=== PATIENT | female | born 1955 | race Native Hawaiian/Other Pacific Islander ===

== ENCOUNTER 2018-01-05 11:22 | Emergency (ER) | payer OTHER ==
[~2018-01-05] VITALS: Ht 170.2 cm; Wt 77.1 kg
[2018-01-05 11:34] VITALS: TEMP 97.9
[2018-01-05 12:17] LABS: PLATELET COUNT 357 K/uL (152-353)
[2018-01-05 12:27] LABS: POTASSIUM 3.5 mmol/L (3.6-5.2)
[2018-01-05 17:10] VITALS: BP 180/59
== END 2018-01-05 17:10 | disposition home or self-care (01) ==
LOC: ED 11:22
DX: J06.9 Acute upper respiratory infection, unspecified (principal)
CPT/HCPCS: 36415; 80053; 81000; 85027; 87502; 87651; 96374; 99284; J3490

== ENCOUNTER 2018-06-29 16:34 | Outpatient (CLI) | payer OTHER | END 2018-06-29 16:45 | disposition short-term general hospital (02) | LOC: AMB 16:34 | DX: R10.13 Epigastric pain (principal) | CPT/HCPCS: A0425; A0427 ==

== ENCOUNTER 2018-06-29 16:51 | Emergency (ER) | payer OTHER ==
[~2018-06-29] VITALS: Ht 170.2 cm; Wt 77.1 kg
[2018-06-29 17:07] LABS: PLATELET COUNT 306 K/uL (152-353)
[2018-06-29 17:29] LABS: POTASSIUM 2.9 mmol/L (3.6-5.2); SODIUM 142 mmol/L (136-145)
[2018-06-29 19:35] VITALS: TEMP 99.5
[2018-06-29 20:05] VITALS: BP 160/62
== END 2018-06-29 20:05 | disposition home or self-care (01) ==
LOC: ED 16:51
PROVIDERS: Emergency Medicine
DX: K29.00 Acute gastritis without bleeding (principal); E87.6 Hypokalemia; R00.1 Bradycardia, unspecified
CPT/HCPCS: 74022; 80053; 82550; 82553; 83690; 84484; 85027; 96360; 96366; 96374; 99284; J2270; J2405

== ENCOUNTER 2019-02-12 19:21 | Outpatient (CLI) | payer OTHER | END 2019-02-12 19:31 | disposition short-term general hospital (02) | LOC: AMB 19:21 | DX: R53.1 Weakness (principal) | CPT/HCPCS: A0425; A0427 ==

== ENCOUNTER 2019-02-12 19:36 | Emergency (ER) | payer OTHER ==
[~2019-02-12] VITALS: Ht 170.2 cm; Wt 77.1 kg
[2019-02-12 19:36] VITALS: BP 158/74; TEMP 97.9
[2019-02-12 20:11] LABS: PLATELET COUNT 364 K/uL (152-353)
[2019-02-12 20:12] LABS: POTASSIUM 3.3 mmol/L (3.6-5.2); SODIUM 142 mmol/L (136-145)
== END 2019-02-12 21:23 | disposition left against medical advice (07) ==
LOC: ED 19:36
PROVIDERS: Family Medicine
DX: G45.8 Other transient cerebral ischemic attacks and related syndromes (principal); D64.89 Other specified anemias; I10 Essential (primary) hypertension; Z91.14 Patient's other noncompliance with medication regimen; R79.1 Abnormal coagulation profile
CPT/HCPCS: 80053; 81000; 82550; 84484; 85027; 85610; 85730; 93005; 99283